=== PATIENT | female | born 1965 ===

== ENCOUNTER 2021-03-08 15:33 | Outpatient (CLI) | payer OTHER | END 2021-03-08 15:36 | disposition home or self-care (01) | LOC: NUCLEAR 15:33 | PROVIDERS: ATTEND Internal Medicine | DX: M81.0 Age-related osteoporosis without current pathological fracture (principal); M54.5 Low back pain ==

== ENCOUNTER 2022-04-21 14:16 | Outpatient (CLI) | payer OTHER | END 2022-04-21 14:40 | disposition home or self-care (01) | LOC: RAD 14:16 | PROVIDERS: ATTEND Orthopaedic Surgery Orthopaedic Surgery of the Spine | DX: M25.511 Pain in right shoulder (principal); M25.512 Pain in left shoulder; M25.561 Pain in right knee; M25.562 Pain in left knee ==